=== PATIENT | female | born 1955 | race Caucasian/White ===

== ENCOUNTER 2023-03-26 13:10 | Inpatient (IN) | payer OTHER ==
[2023-03-26] MEDS ORDERED: LACTATED RINGERS SOLUTION 1000 ML INFUS.BAG IV ONE ×2 (14:00→14:30)
[2023-03-26] MEDS ORDERED: METOCLOPRAMIDE HCL INJECTION 10 MG/2 ML VIAL IVPUSH ONE (14:00)
[2023-03-26] MEDS ORDERED: ACETAMINOPHEN 500 MG TABLET (FP) PO ONE (14:03)
[2023-03-26] MEDS ORDERED: METOCLOPRAMIDE HCL INJECTION 10 MG/2 ML VIAL ONE (14:12)
[2023-03-26] MEDS ORDERED: ACETAMINOPHEN INJECTION 100 ML IVPB ONE (14:12)
[2023-03-26 14:22] LABS: VENOUS BASE EXCESS -11.7 mmol/L (-2-2); VENOUS O2 SATURATION 39.7 % (70-80); VENOUS PCO2 40.2 mmHg (38-52); VENOUS PH 7.207 (7.310-7.410)
[2023-03-26] MEDS ORDERED: ACETAMINOPHEN 500 MG TABLET (FP) ONE (14:23)
[2023-03-26 14:37] LABS: BASO % 0.9 % (0-2.0); EOS % 0.1 % (0-4.5); HEMATOCRIT 45.9 % (32.4-45.2); HEMOGLOBIN 15.6 GM/dL (10.7-15.3); LYMPH % 19.5 % (8-40); MCHC 33.9 g/dl (32.0-36.0); MEAN CELL VOLUME 85.5 fl (80-96); MEAN PLT VOLUME 10.1 fl (7.5-11.1); MONO % 5.5 % (3.8-10.2); PLATELET COUNT 305 10^3/uL (134-434); RBC 5.36 M/mm3 (3.60-5.2); RDW 13.1 % (11.6-15.6); WHITE BLOOD COUNT 7.1 K/mm3 (4.0-10.0)
[2023-03-26 15:06] LABS: CHLORIDE 96 mmol/L (98-107); POTASSIUM 4.6 mmol/L (3.5-5.1); SODIUM 129 mmol/L (136-145)
[2023-03-26 15:07] LABS: CALCIUM 9.8 mg/dL (8.5-10.1)
[2023-03-26 15:08] LABS: ALBUMIN 3.7 g/dl (3.4-5.0); ANION GAP 18 mmol/L (4-13); BLOOD UREA NITROGEN 24.6 mg/dL (7-18); CO2 16 mmol/L (21-32); MAGNESIUM 1.9 mg/dL (1.8-2.4)
[2023-03-26 15:11] LABS: CREATININE 1.4 mg/dL (0.55-1.3); PHOSPHOROUS 3.2 mg/dL (2.5-4.9); SGOT/AST 12 U/L (15-37); SGPT/ALT 15 U/L (13-61)
[2023-03-26 15:12] LABS: BILIRUBIN,TOTAL 0.7 mg/dL (0.2-1); TOT PROT 7.1 g/dl (6.4-8.2)
[2023-03-26 15:13] LABS: ALK PHOS 118 U/L (45-117)
[2023-03-26] MEDS ORDERED: SODIUM CHLORIDE 0.9%/KCL 20 MEQ/1,000 ML INFUS.BAG IV SCH (15:15)
[2023-03-26] MEDS ORDERED: INSULIN DRIP - PLEASE ORDER UNDER SETS NR ONE (15:16)
[2023-03-26 15:25] LABS: GLUCOSE,RANDOM 611 mg/dL (74-106)
[2023-03-26] MEDS ORDERED: INSULIN REGULAR HUMAN 100 UNITS/ML *VIAL* (FOR IVP) IVPUSH ONE (15:32)
[2023-03-26] MEDS ORDERED: INSULIN REGULAR HUMAN 100 UNITS/ML *VIAL IVPUSH ONE (15:35)
[2023-03-26] MEDS ORDERED: INSULIN REGULAR 100 UNITS in SODIUM CHLORIDE 99 ML IVPB SCH (15:45)
[2023-03-26 17:11] LABS: PH,URINE 5.5 (5.0-8.0); URINE APPEARANCE CLEAR; URINE BILIRUBIN NEGATIVE (NEGATIVE); URINE COLOR YELLOW; URINE GLUCOSE (UA) 3+ (NEGATIVE); URINE KETONE 4+ (NEGATIVE); URINE LEUK ESTERASE NEGATIVE (NEGATIVE); URINE NITRITE NEGATIVE (NEGATIVE); URINE PROTEIN NEGATIVE (NEGATIVE); URINE UROBILINOGEN 0.2 mg/dL (0.2-1.0)
[2023-03-26] MEDS ORDERED: ALBUTEROL SO4 HFA INHALER IH PRN (18:24)
[2023-03-26 19:29] LABS: BLOOD UREA NITROGEN 19.9 mg/dL (7-18); CALCIUM 8.9 mg/dL (8.5-10.1); CREATININE 1.1 mg/dL (0.55-1.3); POTASSIUM 5.2 mmol/L (3.5-5.1)
[2023-03-26] MEDS ORDERED: DEXTROSE 5%-NORMAL SALINE 1,000 ML IV SCH (21:45)
[2023-03-26] MEDS ORDERED: PATIENT'S OWN MEDICATION (NON-FORMULARY) (Ruxolitinib Phosphate [Opzelura] 60 GM Cream..G. TP SCH (22:00)
[2023-03-26] MEDS: MUPIROCIN 2% TOPICAL OINTMENT FOR DECOLONIZATION NS SCH (23:09)
[2023-03-26] MEDS: CHLORHEXIDINE GLUCONATE 4% CLEANSER FOR DECOLONIZATION TP SCH (23:09)
[2023-03-27] MEDS ORDERED: LEVOTHYROXINE 112 MCG, LEVOTHYROXINE 25 MCG PO SCH (07:00)
[2023-03-27 07:38] LABS: HEMATOCRIT 36.7 % (32.4-45.2); HEMOGLOBIN 13.1 GM/dL (10.7-15.3); MCH 29.9 pg (25.7-33.7); MCHC 35.8 g/dl (32.0-36.0); MEAN CELL VOLUME 83.4 fl (80-96); MEAN PLT VOLUME 9.8 fl (7.5-11.1); PLATELET COUNT 252 10^3/uL (134-434); RDW 12.9 % (11.6-15.6); WHITE BLOOD COUNT 6.2 K/mm3 (4.0-10.0)
[2023-03-27 09:02] LABS: CHLORIDE 110 mmol/L (98-107); POTASSIUM 3.2 mmol/L (3.5-5.1); SODIUM 140 mmol/L (136-145)
[2023-03-27 09:04] LABS: CALCIUM 8.8 mg/dL (8.5-10.1)
[2023-03-27 09:05] LABS: ANION GAP 3 mmol/L (4-13); BLOOD UREA NITROGEN 14.3 mg/dL (7-18); CO2 27 mmol/L (21-32); GLUCOSE,RANDOM 84 mg/dL (74-106)
[2023-03-27 09:06] LABS: MAGNESIUM 1.6 mg/dL (1.8-2.4)
[2023-03-27 09:07] LABS: CREATININE 0.7 mg/dL (0.55-1.3)
[2023-03-27 09:08] LABS: SGOT/AST 13 U/L (15-37); SGPT/ALT 12 U/L (13-61)
[2023-03-27 09:09] LABS: BILIRUBIN,TOTAL 0.4 mg/dL (0.2-1); TOT PROT 5.5 g/dl (6.4-8.2)
[2023-03-27] MEDS ORDERED: MAGNESIUM 2GM/50ML STERILE WATER IVPB IVPB ONE (09:13)
[2023-03-27 09:23] LABS: ALBUMIN 2.9 g/dl (3.4-5.0); ALK PHOS 83 U/L (45-117); PHOSPHOROUS 0.9 mg/dL (2.5-4.9)
[2023-03-27] MEDS ORDERED: INSULIN (LEVEMIR) 100 UNITS/ML UNITS SQ SCH ×2 (09:30→10:00)
[2023-03-27] MEDS: MUPIROCIN 2% TOPICAL OINTMENT FOR DECOLONIZATION NS SCH ×2 (09:39→21:35)
[2023-03-27] MEDS: POTASSIUM CHLORIDE TABS 20 MEQ TABLET.ER (FP) PO SCH ×2 (09:39→09:40)
[2023-03-27] MEDS: NAPH,MB-DB/K PH,MBDB POWDER PACKET PO SCH ×3 (09:40→16:16)
[2023-03-27] MEDS ORDERED: ACETAMINOPHEN 325 MG TABLET (FP) ONE (09:54)
[2023-03-27] MEDS ORDERED: ENOXAPARIN NA (PORCINE) 40 MG/0.4 ML DISP.SYRIN SQ SCH (10:00)
[2023-03-27] MEDS ORDERED: PATIENT'S OWN MEDICATION (NON-FORMULARY) (Levothyroxine Sodium [Synthroid] 137 MCG Tablet) PO SCH (10:00)
[2023-03-27] MEDS: INSULIN SLIDING SCALE (NOVOLOG) 1 VIAL SQ SCH ×3 (11:55→21:58)
[2023-03-27] MEDS: INSULIN (NOVOLOG) ASPART 100 UNITS/ML 10ML VIAL SQ SCH ×2 (11:56→16:52)
[2023-03-27] MEDS ORDERED: INSULIN (NOVOLOG) ASPART 100 UNITS/ML 10ML VIAL SQ SCH (12:00)
[2023-03-27 15:55] LABS: POTASSIUM 3.6 mmol/L (3.5-5.1)
[2023-03-27 16:01] LABS: BLOOD UREA NITROGEN 14.1 mg/dL (7-18); CALCIUM 8.8 mg/dL (8.5-10.1)
[2023-03-27 16:05] LABS: CREATININE 0.7 mg/dL (0.55-1.3); PHOSPHOROUS 1.2 mg/dL (2.5-4.9)
[2023-03-27] MEDS ORDERED: SODIUM CHLORIDE 500 ML IV STA (16:59)
[2023-03-27] MEDS ORDERED: KCL 10 MEQ IVPB 10 MEQ/100 ML INFUS.BAG IVPB SCH (17:15)
[2023-03-27] MEDS ORDERED: SODIUM CHLORIDE 1,000 ML IV SCH (18:00)
[2023-03-27] MEDS ORDERED: SODIUM PHOSPHATE - 20 MM in SODIUM CHLORIDE 250 ML IVPB ONE (18:00)
[2023-03-27] MEDS: CHLORHEXIDINE GLUCONATE 4% CLEANSER FOR DECOLONIZATION TP SCH (21:36)
[2023-03-27] MEDS: INSULIN (LEVEMIR) 100 UNITS/ML UNITS SQ SCH (21:59)
[2023-03-28] MEDS: LEVOTHYROXINE NA 100 MCG TABLET (FP) PO SCH (06:22)
[2023-03-28] MEDS: INSULIN SLIDING SCALE (NOVOLOG) 1 VIAL SQ SCH ×4 (06:51→22:55)
[2023-03-28] MEDS: INSULIN (LEVEMIR) 100 UNITS/ML UNITS SQ SCH (06:51)
[2023-03-28] MEDS ORDERED: ENOXAPARIN NA (PORCINE) 30 MG/0.3 ML DISP.SYRIN SQ SCH (07:30)
[2023-03-28 07:39] LABS: POTASSIUM 3.5 mmol/L (3.5-5.1)
[2023-03-28 07:42] LABS: BLOOD UREA NITROGEN 9.7 mg/dL (7-18); CALCIUM 8.6 mg/dL (8.5-10.1); MAGNESIUM 1.9 mg/dL (1.8-2.4)
[2023-03-28 07:46] LABS: CREATININE 0.6 mg/dL (0.55-1.3); PHOSPHOROUS 3.3 mg/dL (2.5-4.9)
[2023-03-28] MEDS: MUPIROCIN 2% TOPICAL OINTMENT FOR DECOLONIZATION NS SCH ×2 (09:57→22:48)
[2023-03-28 12:59] VITALS: BMI 25.7
[2023-03-28] MEDS: CHLORHEXIDINE GLUCONATE 4% CLEANSER FOR DECOLONIZATION TP SCH (22:48)
[2023-03-28] MEDS: ENOXAPARIN NA (PORCINE) 60 MG/0.6 ML DISP.SYRIN SQ SCH (22:49)
[2023-03-28] MEDS ORDERED: INSULIN (NOVOLOG) ASPART 100 UNITS/ML 10ML VIAL ONE (22:59)
[2023-03-29] MEDS ORDERED: INSULIN (NOVOLOG) ASPART 100 UNITS/ML 10ML VIAL ONE (05:35)
[2023-03-29] MEDS: INSULIN SLIDING SCALE (NOVOLOG) 1 VIAL SQ SCH ×2 (06:02→12:22)
[2023-03-29] MEDS: LEVOTHYROXINE NA 100 MCG TABLET (FP) PO SCH (06:03)
[2023-03-29 07:48] LABS: POTASSIUM 3.4 mmol/L (3.5-5.1)
[2023-03-29 07:55] LABS: BLOOD UREA NITROGEN 8.8 mg/dL (7-18)
[2023-03-29 07:58] LABS: CREATININE 0.6 mg/dL (0.55-1.3)
[2023-03-29] MEDS: ENOXAPARIN NA (PORCINE) 60 MG/0.6 ML DISP.SYRIN SQ SCH (10:01)
[2023-03-29] MEDS: MUPIROCIN 2% TOPICAL OINTMENT FOR DECOLONIZATION NS SCH (10:01)
[2023-03-29 15:37] VITALS: BP 110/71; PULSE 86; RESP 18; TEMP 98.6
== END 2023-03-29 15:45 | disposition home or self-care (01) | DRG 637 ==
LOC: JER 13:10 → JERBED 15:17 → JICU 17:21
PROVIDERS: ADMIT Internal Medicine Pulmonary Disease; ATTEND Internal Medicine
DX: E11.10 Type 2 diabetes mellitus with ketoacidosis without coma (principal); U07.1 COVID-19; N17.9 Acute kidney failure, unspecified; E03.9 Hypothyroidism, unspecified; J45.20 Mild intermittent asthma, uncomplicated; L80 Vitiligo; E86.1 Hypovolemia; E86.0 Dehydration
CPT/HCPCS: 0241U-QW; 36415; 71045-TC-FY; 71275-TC; 80048; 80053; 81003; 82010; 82728; 82803; 82962; 83036; 83735; 84100; 84439; 84443; 84479; 84481; 84484; 85025; 85027; 85379; 86140; 87086; 93005; 93010; 99291; Q9967

== ENCOUNTER 2023-05-11 13:43 | Inpatient (IN) | payer OTHER ==
[2023-05-11 16:35] LABS: BASO % 0.9 % (0-2.0); HEMATOCRIT 48.6 % (32.4-45.2); HEMOGLOBIN 16.2 GM/dL (10.7-15.3); LYMPH % 23.4 % (8-40); MCH 29.1 pg (25.7-33.7); MCHC 33.4 g/dl (32.0-36.0); MEAN CELL VOLUME 87.2 fl (80-96); MEAN PLT VOLUME 11.2 fl (7.5-11.1); MONO % 5.2 % (3.8-10.2); NEUT % 70.5 % (42.8-82.8); PLATELET COUNT 389 10^3/uL (134-434); RBC 5.57 M/mm3 (3.60-5.2); RDW 13.7 % (11.6-15.6); WHITE BLOOD COUNT 11.2 K/mm3 (4.0-10.0)
[2023-05-11 16:44] LABS: INR 0.94 (0.83-1.09); PROTHROMBIN TIME (PATIENT) 10.9 SEC (9.7-13.0)
[2023-05-11 16:47] LABS: ACTIVATED PTT 29.7 SECONDS (25.2-36.5)
[2023-05-11 16:55] LABS: CHLORIDE 101 mmol/L (98-107); SODIUM 133 mmol/L (136-145)
[2023-05-11 16:58] LABS: CALCIUM 10.2 mg/dL (8.5-10.1); GLUCOSE,RANDOM 390 mg/dL (74-106)
[2023-05-11 16:59] LABS: ALBUMIN 4.4 g/dl (3.4-5.0); BLOOD UREA NITROGEN 14.6 mg/dL (7-18); CO2 14 mmol/L (21-32)
[2023-05-11] MEDS ORDERED: SODIUM CHLORIDE 1,000 ML IV STA (17:01)
[2023-05-11 17:02] LABS: CREATININE 1.1 mg/dL (0.55-1.3); SGOT/AST 53 U/L (15-37)
[2023-05-11 17:03] LABS: BILIRUBIN,TOTAL 0.6 mg/dL (0.2-1); TOT PROT 8.9 g/dl (6.4-8.2)
[2023-05-11 17:04] LABS: ALK PHOS 139 U/L (45-117)
[2023-05-11 17:13] LABS: ANION GAP 18 mmol/L (4-13); POTASSIUM 6.9 mmol/L (3.5-5.1); SGPT/ALT 22 U/L (13-61)
[2023-05-11 17:55] LABS: EPI CELLS 6 /uL (0-25.1); HYALINE CASTS 1 /uL (0-3.1); URINE APPEARANCE CLEAR; URINE BACTERIA 5 /uL (0-1359); URINE BILIRUBIN NEGATIVE (NEGATIVE); URINE COLOR YELLOW; URINE GLUCOSE (UA) 3+ (NEGATIVE); URINE KETONE 4+ (NEGATIVE); URINE LEUK ESTERASE NEGATIVE (NEGATIVE); URINE NITRITE NEGATIVE (NEGATIVE); URINE PROTEIN 1+ (NEGATIVE); URINE RBC 8 /uL (0-23.9); URINE UROBILINOGEN 0.2 mg/dL (0.2-1.0); URINE WBC 9 /uL (0-25.8)
[2023-05-11] MEDS ORDERED: SODIUM CHLORIDE 0.9% 500 ML INFUS.BAG IV ONE (18:09)
[2023-05-11 18:10] LABS: POTASSIUM 4.5 mmol/L (3.5-5.1)
[2023-05-11 18:12] LABS: CALCIUM 9.3 mg/dL (8.5-10.1)
[2023-05-11 18:15] LABS: CREATININE 0.9 mg/dL (0.55-1.3)
[2023-05-11 18:48] LABS: VENOUS BASE EXCESS -17.1 mmol/L (-2-2); VENOUS O2 SATURATION 69.6 % (70-80); VENOUS PCO2 33.2 mmHg (38-52)
[2023-05-11 18:50] LABS: VENOUS PH 7.134 (7.310-7.410)
[2023-05-11] MEDS ORDERED: INSULIN REGULAR HUMAN 100 UNITS/ML *VIAL* (FOR IVP) IVPUSH ONE (18:51)
[2023-05-11] MEDS ORDERED: INSULIN REGULAR 100 UNITS in SODIUM CHLORIDE 99 ML IVPB SCH (19:00)
[2023-05-11] MEDS ORDERED: SODIUM CHLORIDE 0.9%/KCL 20 MEQ/1,000 ML INFUS.BAG IV SCH (19:00)
[2023-05-11] MEDS ORDERED: INSULIN SLIDING SCALE (NOVOLOG) 1 VIAL SQ SCH (21:15)
[2023-05-11] MEDS ORDERED: POTASSIUM CHLORIDE 10 MEQ in SODIUM CHLORIDE 0.45% 1,000 ML IVPB SCH (21:15)
[2023-05-11 21:52] VITALS: BMI 25.9
[2023-05-11] MEDS ORDERED: INSULIN (LEVEMIR) 100 UNITS/ML UNITS SQ SCH (22:00)
[2023-05-11] MEDS: D5-NS + 40 MEQ KCL - 40 MEQ/1,000 ML INFUS.BAG IV SCH (22:00)
[2023-05-11 22:43] LABS: POTASSIUM 3.5 mmol/L (3.5-5.1)
[2023-05-11 22:49] LABS: CREATININE 0.7 mg/dL (0.55-1.3)
[2023-05-11 23:13] LABS: BLOOD UREA NITROGEN 11.7 mg/dL (7-18); CALCIUM 8.8 mg/dL (8.5-10.1)
[2023-05-11] MEDS: INSULIN (LEVEMIR) 100 UNITS/ML UNITS SQ SCH (23:33)
[2023-05-12] MEDS: LEVOTHYROXINE NA 125 MCG TABLET (FP) PO SCH (06:44)
[2023-05-12] MEDS ORDERED: INSULIN SLIDING SCALE (NOVOLOG) 1 VIAL SQ SCH (07:00)
[2023-05-12 08:30] LABS: BASO % 1.7 % (0-2.0); EOS % 0.4 % (0-4.5); HEMOGLOBIN 13.6 GM/dL (10.7-15.3); LYMPH % 18.6 % (8-40); MCH 29.5 pg (25.7-33.7); MEAN CELL VOLUME 86.7 fl (80-96); MONO % 7.7 % (3.8-10.2); NEUT % 71.6 % (42.8-82.8); PLATELET COUNT 274 10^3/uL (134-434); RBC 4.61 M/mm3 (3.60-5.2); RDW 13.3 % (11.6-15.6)
[2023-05-12 09:45] LABS: MAGNESIUM 1.5 mg/dL (1.8-2.4)
[2023-05-12 09:47] LABS: BLOOD UREA NITROGEN 9.4 mg/dL (7-18)
[2023-05-12] MEDS ORDERED: MAGNESIUM SULF 50% (8.12 MEQ/2 ML-1 GM VIAL) IVPB ONE ×3 (09:47→18:02)
[2023-05-12 09:49] LABS: BILIRUBIN,DIRECT 0.1 mg/dL (0.0-0.2); CREATININE 0.8 mg/dL (0.55-1.3)
[2023-05-12 09:50] LABS: PHOSPHOROUS 1.8 mg/dL (2.5-4.9)
[2023-05-12 09:51] LABS: BILIRUBIN,TOTAL 0.5 mg/dL (0.2-1)
[2023-05-12 09:54] LABS: ALBUMIN 3.2 g/dl (3.4-5.0)
[2023-05-12] MEDS ORDERED: INSULIN (LEVEMIR) 100 UNITS/ML UNITS SQ SCH ×3 (10:09→22:00)
[2023-05-12] MEDS ORDERED: LACTATED RINGERS SOLUTION 1,000 ML/1,000 ML INFUS.BAG IV STA (10:15)
[2023-05-12] MEDS: ENOXAPARIN NA (PORCINE) 40 MG/0.4 ML DISP.SYRIN SQ SCH (10:21)
[2023-05-12] MEDS: D5-NS + 40 MEQ KCL - 40 MEQ/1,000 ML INFUS.BAG IV SCH (10:36)
[2023-05-12] MEDS ORDERED: INSULIN (LEVEMIR) 100 UNITS/ML UNITS SQ ONE (10:45)
[2023-05-12] MEDS ORDERED: POTASSIUM PHOSPHATE 30 MM in SODIUM CHLORIDE 250 ML IVPB ONE (11:00)
[2023-05-12] MEDS: LACTATED RINGERS SOLUTION 1,000 ML/1,000 ML INFUS.BAG IV SCH (11:10)
[2023-05-12] MEDS: INSULIN (LEVEMIR) 100 UNITS/ML UNITS SQ SCH (11:11)
[2023-05-12] MEDS: INSULIN SLIDING SCALE (NOVOLOG) 1 VIAL SQ SCH ×3 (11:38→21:30)
[2023-05-13] MEDS ORDERED: DEXAMETHASONE SOD PHOSPHATE 10 MG/1 ML VIAL ONE (02:49)
[2023-05-13] MEDS ORDERED: DEXTROSE 50%-WATER 25 GM/50 ML DISP.SYRIN ONE (02:49)
[2023-05-13] MEDS ORDERED: DEXTROSE 50%-WATER 25 GM/50 ML DISP.SYRIN IVPUSH ONE (03:19)
[2023-05-13] MEDS: LACTATED RINGERS SOLUTION 1,000 ML/1,000 ML INFUS.BAG IV SCH (03:27)
[2023-05-13] MEDS ORDERED: D5-1/2NS+20 MEQ KCL - 20 MEQ/1,000 ML INFUS.BAG IV SCH (06:00)
[2023-05-13] MEDS: INSULIN SLIDING SCALE (NOVOLOG) 1 VIAL SQ SCH ×5 (06:10→21:55)
[2023-05-13] MEDS: LEVOTHYROXINE NA 125 MCG TABLET (FP) PO SCH (06:11)
[2023-05-13] MEDS ORDERED: INSULIN (LEVEMIR) 100 UNITS/ML UNITS SQ SCH ×2 (07:00→22:00)
[2023-05-13 07:18] LABS: BASO % 1.1 % (0-2.0); EOS % 0.4 % (0-4.5); HEMATOCRIT 37.8 % (32.4-45.2); LYMPH % 25.1 % (8-40); MCH 29.1 pg (25.7-33.7); MCHC 34.4 g/dl (32.0-36.0); MEAN CELL VOLUME 84.6 fl (80-96); MEAN PLT VOLUME 10.8 fl (7.5-11.1); MONO % 9.8 % (3.8-10.2); NEUT % 63.6 % (42.8-82.8); PLATELET COUNT 247 10^3/uL (134-434); RBC 4.47 M/mm3 (3.60-5.2); RDW 13.6 % (11.6-15.6); WHITE BLOOD COUNT 6.5 K/mm3 (4.0-10.0)
[2023-05-13 07:21] LABS: BLOOD UREA NITROGEN 5.2 mg/dL (7-18); MAGNESIUM 1.8 mg/dL (1.8-2.4)
[2023-05-13 07:23] LABS: CHOLESTEROL 156 mg/dL (50-200)
[2023-05-13 07:24] LABS: CREATININE 0.3 mg/dL (0.55-1.3); PHOSPHOROUS 2.5 mg/dL (2.5-4.9)
[2023-05-13 07:25] LABS: LDL CHOLESTEROL (ONLY SJRH) 105 mg/dL (5-100)
[2023-05-13 07:26] LABS: HDL CHOLESTEROL 41 mg/dL (40-60)
[2023-05-13] MEDS: KCL 10 MEQ IVPB 10 MEQ/100 ML INFUS.BAG IVPB SCH ×3 (07:57→12:01)
[2023-05-13] MEDS: D5-1/2NS+20 MEQ KCL - 20 MEQ/1,000 ML INFUS.BAG IV SCH ×4 (08:05→22:10)
[2023-05-13] MEDS: POTASSIUM CHLORIDE TABS 20 MEQ TABLET.ER (FP) PO SCH ×2 (09:03→21:51)
[2023-05-13] MEDS: ENOXAPARIN NA (PORCINE) 40 MG/0.4 ML DISP.SYRIN SQ SCH (09:04)
[2023-05-13] MEDS ORDERED: REGADENOSON 0.4 MG/5 ML PRE-FILLED SYRINGE IVPUSH ONE ×2 (10:53→11:15)
[2023-05-13] MEDS ORDERED: INSULIN (LEVEMIR) 100 UNITS/ML UNITS SQ ONE (11:24)
[2023-05-13] MEDS ORDERED: ATORVASTATIN CA 20 MG TABLET (FP) PO SCH (22:00)
[2023-05-14] MEDS: INSULIN SLIDING SCALE (NOVOLOG) 1 VIAL SQ SCH ×3 (00:49→08:07)
[2023-05-14] MEDS: LEVOTHYROXINE NA 125 MCG TABLET (FP) PO SCH (06:30)
[2023-05-14] MEDS: D5-1/2NS+20 MEQ KCL - 20 MEQ/1,000 ML INFUS.BAG IV SCH (06:37)
[2023-05-14] MEDS ORDERED: INSULIN (LEVEMIR) 100 UNITS/ML UNITS SQ SCH (07:00)
[2023-05-14] MEDS ORDERED: LEVOTHYROXINE NA 125 MCG TABLET (FP) PO SCH (07:45)
[2023-05-14] MEDS: POTASSIUM CHLORIDE TABS 20 MEQ TABLET.ER (FP) PO SCH (09:59)
[2023-05-14] MEDS ORDERED: ENOXAPARIN NA (PORCINE) 40 MG/0.4 ML DISP.SYRIN SQ SCH (10:00)
[2023-05-14 10:38] VITALS: BP 116/48; PULSE 81; RESP 18; TEMP 98.3
== END 2023-05-14 11:46 | disposition home or self-care (01) | DRG 638 ==
LOC: JER 13:43 → JERBED 20:01 → JICU 21:37 → J4W 05-12 22:59
PROVIDERS: ADMIT Internal Medicine Pulmonary Disease; ATTEND Internal Medicine
DX: E11.10 Type 2 diabetes mellitus with ketoacidosis without coma (principal); E87.3 Alkalosis; E03.9 Hypothyroidism, unspecified; R07.89 Other chest pain
CPT/HCPCS: 0241U-QW; 36415; 71046-TC-FY; 78452-TC; 80048; 80053; 80061; 80076; 81003; 82010; 82550; 82803; 82962; 83735; 84100; 84443; 84484; 85025; 85610; 85730; 87086; 93005; 93010; 93017; 93306-TC; 97116-GP; 97161-GP; 99285-25; A9502; J1100; J2785

== ENCOUNTER 2024-01-26 15:07 | Inpatient (IN) | payer OTHER ==
[2024-01-26] MEDS ORDERED: ONDANSETRON 4 MG/2 ML VIAL ONE (16:24)
[2024-01-26] MEDS ORDERED: ACETAMINOPHEN INJECTION 100 ML ONE (16:24)
[2024-01-26] MEDS: ACETAMINOPHEN 1000 MG/100 ML BAG IVPB ONE (16:35)
[2024-01-26] MEDS: SODIUM CHLORIDE 0.9% 500 ML INFUS.BAG IV ONE (16:35)
[2024-01-26] MEDS: ONDANSETRON *ODT* 4 MG TABLET SL ONE (16:35)
[2024-01-26 16:46] LABS: VENOUS BASE EXCESS -17.9 mmol/L (-2-2); VENOUS O2 SATURATION 56.7 % (70-80); VENOUS PCO2 29.1 mmHg (38-52)
[2024-01-26 16:47] LABS: BASO % 1.5 % (0-2.0); EOS % 0.1 % (0-4.5); HEMATOCRIT 50.6 % (32.4-45.2); HEMOGLOBIN 16.8 GM/dL (10.7-15.3); LYMPH % 16.9 % (8-40); MCH 28.7 pg (25.7-33.7); MCHC 33.1 g/dl (32.0-36.0); MEAN CELL VOLUME 86.5 fl (80-96); MEAN PLT VOLUME 10.6 fl (7.5-11.1); MONO % 3.6 % (3.8-10.2); NEUT % 77.9 % (42.8-82.8); PLATELET COUNT 366 10^3/uL (134-434); RBC 5.85 M/mm3 (3.60-5.2); RDW 13.9 % (11.6-15.6); WHITE BLOOD COUNT 10.2 K/mm3 (4.0-10.0)
[2024-01-26 16:49] LABS: VENOUS PH 7.139 (7.310-7.410)
[2024-01-26 16:54] LABS: INR 0.89 (0.83-1.09); PROTHROMBIN TIME (PATIENT) 10.1 SEC (9.7-13.0)
[2024-01-26 16:56] LABS: ACTIVATED PTT 31.4 SECONDS (25.2-36.5)
[2024-01-26 17:05] LABS: CHLORIDE 98 mmol/L (98-107); POTASSIUM 4.6 mmol/L (3.5-5.1); SODIUM 133 mmol/L (136-145)
[2024-01-26 17:07] LABS: CALCIUM 11.4 mg/dL (8.5-10.1)
[2024-01-26 17:08] LABS: ALBUMIN 4.6 g/dl (3.4-5.0); ANION GAP 24 mmol/L (4-13); BLOOD UREA NITROGEN 17.8 mg/dL (7-18); CO2 11 mmol/L (21-32); MAGNESIUM 1.9 mg/dL (1.8-2.4)
[2024-01-26 17:11] LABS: CREATININE 1.3 mg/dL (0.55-1.3); SGOT/AST 11 U/L (15-37); SGPT/ALT 31 U/L (13-61)
[2024-01-26 17:12] LABS: BILIRUBIN,TOTAL 0.8 mg/dL (0.2-1); GLUCOSE,RANDOM 493 mg/dL (74-106); TOT PROT 8.4 g/dl (6.4-8.2)
[2024-01-26 17:14] LABS: ALK PHOS 151 U/L (45-117)
[2024-01-26 18:02] LABS: HIV INTERPRETATION NEGATIVE (NEGATIVE)
[2024-01-26] MEDS ORDERED: INSULIN REGULAR HUMAN 100 UNITS/ML *VIAL ONE (18:21)
[2024-01-26] MEDS: LACTATED RINGERS SOLUTION 1,000 ML IV STA (18:37)
[2024-01-26] MEDS: INSULIN REGULAR HUMAN 100 UNITS/ML *VIAL IVPUSH ONE (18:37)
[2024-01-26] MEDS: POTASSIUM CHLORIDE TABS 20 MEQ TABLET.ER (FP) PO ONE (18:37)
[2024-01-26] MEDS ORDERED: POTASSIUM CHLORIDE TABS 20 MEQ TABLET.ER (FP) PO ONE (18:38)
[2024-01-26] MEDS: INSULIN REGULAR 100 UNITS in SODIUM CHLORIDE 99 ML IVPB SCH ×2 (18:38→21:26)
[2024-01-26 19:21] LABS: EPI CELLS 3 /uL (0-25.1); HYALINE CASTS 1 /uL (0-3.1); PH,URINE 5.5 (5.0-8.0); URINE APPEARANCE CLEAR; URINE BACTERIA 6 /uL (0-1359); URINE BILIRUBIN NEGATIVE (NEGATIVE); URINE COLOR YELLOW; URINE GLUCOSE (UA) 3+ (NEGATIVE); URINE KETONE 4+ (NEGATIVE); URINE LEUK ESTERASE NEGATIVE (NEGATIVE); URINE NITRITE NEGATIVE (NEGATIVE); URINE PROTEIN 1+ (NEGATIVE); URINE RBC 9 /uL (0-23.9); URINE UROBILINOGEN 0.2 mg/dL (0.2-1.0); URINE WBC 4 /uL (0-25.8)
[2024-01-26] MEDS ORDERED: ACETAMINOPHEN 325 MG TABLET (FP) PO PRN (19:46)
[2024-01-26] MEDS ORDERED: ALBUTEROL SO4 2.5/IPRATROPIUM 0.5 INH SOL 3 ML VIAL.NEB. NEB PRN (19:50)
[2024-01-26] MEDS ORDERED: SODIUM CHLORIDE 1,000 ML IV SCH (20:45)
[2024-01-26] MEDS ORDERED: DEXTROSE 50%-WATER - 25 GM/50 ML VIAL IVPUSH PRN (21:10)
[2024-01-26 21:11] LABS: POTASSIUM 4.1 mmol/L (3.5-5.1)
[2024-01-26 21:12] LABS: CALCIUM 10.5 mg/dL (8.5-10.1)
[2024-01-26 21:13] LABS: BLOOD UREA NITROGEN 17.6 mg/dL (7-18)
[2024-01-26 21:16] LABS: CREATININE 1.1 mg/dL (0.55-1.3)
[2024-01-26] MEDS: LACTATED RINGERS SOLUTION 1,000 ML/1,000 ML INFUS.BAG IV SCH (22:00)
[2024-01-26 22:15] LABS: BASO % 0.6 % (0-2.0); HEMOGLOBIN 15.7 GM/dL (10.7-15.3); LYMPH % 7.9 % (8-40); MCH 28.5 pg (25.7-33.7); MCHC 31.4 g/dl (32.0-36.0); MEAN CELL VOLUME 90.8 fl (80-96); MEAN PLT VOLUME 10.2 fl (7.5-11.1); MONO % 4.5 % (3.8-10.2); PLATELET COUNT 242 10^3/uL (134-434); RBC 5.51 M/mm3 (3.60-5.2); RDW 14.4 % (11.6-15.6); WHITE BLOOD COUNT 14.2 K/mm3 (4.0-10.0)
[2024-01-26 22:27] LABS: POTASSIUM 4.2 mmol/L (3.5-5.1)
[2024-01-26 22:30] LABS: CALCIUM 10.8 mg/dL (8.5-10.1)
[2024-01-26 22:31] LABS: BLOOD UREA NITROGEN 17.1 mg/dL (7-18)
[2024-01-26 22:34] LABS: CREATININE 1.1 mg/dL (0.55-1.3)
[2024-01-26] MEDS: CHLORHEXIDINE GLUCONATE 4% CLEANSER FOR DECOLONIZATION TP SCH (23:14)
[2024-01-26] MEDS: MUPIROCIN 2% TOPICAL OINTMENT FOR DECOLONIZATION NS SCH (23:14)
[2024-01-26] MEDS: PANTOPRAZOLE SODIUM 40 MG VIAL IVPUSH SCH (23:14)
[2024-01-26] MEDS: ATORVASTATIN CA 20 MG TABLET (FP) PO SCH (23:14)
[2024-01-26 23:17] LABS: VENOUS BASE EXCESS -16.7 mmol/L (-2-2); VENOUS O2 SATURATION 62.5 % (70-80); VENOUS PCO2 31.5 mmHg (38-52)
[2024-01-26 23:21] LABS: VENOUS PH 7.154 (7.310-7.410)
[2024-01-26] MEDS: LACTATED RINGERS SOLUTION 1000 ML INFUS.BAG IV ONE (23:32)
[2024-01-27 00:30] VITALS: BMI 23.1
[2024-01-27 01:54] LABS: BASO % 0.5 % (0-2.0); HEMATOCRIT 42.5 % (32.4-45.2); HEMOGLOBIN 14.2 GM/dL (10.7-15.3); LYMPH % 19.8 % (8-40); MCH 28.6 pg (25.7-33.7); MCHC 33.3 g/dl (32.0-36.0); MEAN CELL VOLUME 85.7 fl (80-96); MEAN PLT VOLUME 10.2 fl (7.5-11.1); MONO % 8.5 % (3.8-10.2); NEUT % 71.2 % (42.8-82.8); PLATELET COUNT 340 10^3/uL (134-434); RBC 4.96 M/mm3 (3.60-5.2); WHITE BLOOD COUNT 15.2 K/mm3 (4.0-10.0)
[2024-01-27 02:05] LABS: VENOUS BASE EXCESS -12.8 mmol/L (-2-2); VENOUS O2 SATURATION 56.2 % (70-80); VENOUS PCO2 33.8 mmHg (38-52); VENOUS PH 7.225 (7.310-7.410)
[2024-01-27 02:13] LABS: POTASSIUM 4.2 mmol/L (3.5-5.1); POTASSIUM 4.3 mmol/L (3.5-5.1)
[2024-01-27 02:14] LABS: BLOOD UREA NITROGEN 14.2 mg/dL (7-18); CALCIUM 10.3 mg/dL (8.5-10.1)
[2024-01-27 02:16] LABS: CALCIUM 10.2 mg/dL (8.5-10.1)
[2024-01-27 02:17] LABS: BLOOD UREA NITROGEN 14.5 mg/dL (7-18)
[2024-01-27 02:18] LABS: CREATININE 1.1 mg/dL (0.55-1.3)
[2024-01-27 02:20] LABS: CREATININE 1.1 mg/dL (0.55-1.3)
[2024-01-27 02:22] LABS: BILIRUBIN,TOTAL 0.6 mg/dL (0.2-1); TOT PROT 6.8 g/dl (6.4-8.2)
[2024-01-27 02:51] LABS: ALBUMIN 3.7 g/dl (3.4-5.0)
[2024-01-27] MEDS: INSULIN REGULAR HUMAN 100 UNITS/ML *VIAL IVPUSH ONE (03:59)
[2024-01-27] MEDS: DEXTROSE 10%-WATER - 1,000 ML IV SCH (07:00)
[2024-01-27] MEDS: LEVOTHYROXINE NA 125 MCG TABLET (FP) PO SCH (07:05)
[2024-01-27] MEDS: INSULIN (LEVEMIR) 100 UNITS/ML UNITS SQ ONE (07:24)
[2024-01-27 07:56] LABS: VENOUS BASE EXCESS -7.3 mmol/L (-2-2); VENOUS O2 SATURATION 71.7 % (70-80); VENOUS PCO2 37.3 mmHg (38-52); VENOUS PH 7.308 (7.310-7.410)
[2024-01-27 08:05] LABS: BASO % 0.8 % (0-2.0); EOS % 0.2 % (0-4.5); HEMATOCRIT 39.1 % (32.4-45.2); LYMPH % 22.2 % (8-40); MCH 28.5 pg (25.7-33.7); MCHC 33.3 g/dl (32.0-36.0); MEAN CELL VOLUME 85.4 fl (80-96); MEAN PLT VOLUME 10.5 fl (7.5-11.1); MONO % 10.8 % (3.8-10.2); PLATELET COUNT 287 10^3/uL (134-434); RBC 4.58 M/mm3 (3.60-5.2); RDW 13.4 % (11.6-15.6); WHITE BLOOD COUNT 11.2 K/mm3 (4.0-10.0)
[2024-01-27] MEDS: HEPARIN NA (PORCINE) 5,000 UNITS/ML 1ML VIAL SQ SCH ×2 (08:10→15:34)
[2024-01-27 08:12] LABS: CHLORIDE 111 mmol/L (98-107); POTASSIUM 3.5 mmol/L (3.5-5.1); SODIUM 138 mmol/L (136-145)
[2024-01-27 08:14] LABS: ANION GAP 9 mmol/L (4-13); BLOOD UREA NITROGEN 10.1 mg/dL (7-18); CO2 19 mmol/L (21-32); GLUCOSE,RANDOM 140 mg/dL (74-106); MAGNESIUM 1.4 mg/dL (1.8-2.4)
[2024-01-27 08:15] LABS: ALBUMIN 3.2 g/dl (3.4-5.0)
[2024-01-27 08:17] LABS: CREATININE 0.9 mg/dL (0.55-1.3); SGPT/ALT 23 U/L (13-61)
[2024-01-27 08:18] LABS: SGOT/AST 19 U/L (15-37)
[2024-01-27 08:19] LABS: BILIRUBIN,TOTAL 0.6 mg/dL (0.2-1); TOT PROT 5.7 g/dl (6.4-8.2)
[2024-01-27 08:20] LABS: ALK PHOS 94 U/L (45-117)
[2024-01-27 08:55] LABS: PHOSPHOROUS 0.7 mg/dL (2.5-4.9)
[2024-01-27] MEDS: MAGNESIUM 2GM/50ML STERILE WATER IVPB IVPB ONE (10:04)
[2024-01-27] MEDS: D5-1/2NS+10 MEQ KCL - 10 MEQ/1,000 ML INFUS.BAG IV SCH ×2 (10:04→21:02)
[2024-01-27] MEDS: SODIUM PHOSPHATE - 45 MM in DEXTROSE 5%-WATER - 500 ML IVPB ONE (11:20)
[2024-01-27] MEDS: INSULIN ASPART SLIDING SCALE (NOVOLOG) 1 VIAL SQ SCH ×2 (15:34→21:45)
[2024-01-27] MEDS ORDERED: DEXTROSE 50%-WATER - 25 GM/50 ML VIAL IVPUSH PRN (16:51)
[2024-01-27] MEDS ORDERED: ALBUTEROL SO4 2.5/IPRATROPIUM 0.5 INH SOL 3 ML VIAL.NEB. NEB PRN (16:51)
[2024-01-27] MEDS ORDERED: INSULIN (LEVEMIR) 100 UNITS/ML UNITS SQ ONE (17:23)
[2024-01-27 21:16] LABS: MAGNESIUM 1.8 mg/dL (1.8-2.4)
[2024-01-27] MEDS: ATORVASTATIN CA 20 MG TABLET (FP) PO SCH (21:29)
[2024-01-27] MEDS ORDERED: CHLORHEXIDINE GLUCONATE 4% CLEANSER FOR DECOLONIZATION TP SCH (22:00)
[2024-01-27] MEDS ORDERED: MUPIROCIN 2% TOPICAL OINTMENT FOR DECOLONIZATION NS SCH (22:00)
[2024-01-27 22:20] LABS: PHOSPHOROUS > 18.0 mg/dL (2.5-4.9)
[2024-01-28] MEDS: INSULIN (LEVEMIR) 100 UNITS/ML UNITS SQ SCH ×2 (06:20→21:43)
[2024-01-28] MEDS: LEVOTHYROXINE NA 125 MCG TABLET (FP) PO SCH (06:21)
[2024-01-28] MEDS ORDERED: INSULIN (LEVEMIR) 100 UNITS/ML UNITS SQ SCH (09:00)
[2024-01-28 09:43] LABS: BASO % 1.2 % (0-2.0); EOS % 0.5 % (0-4.5); HEMATOCRIT 40.3 % (32.4-45.2); HEMOGLOBIN 13.6 GM/dL (10.7-15.3); LYMPH % 47.8 % (8-40); MCH 28.7 pg (25.7-33.7); MCHC 33.6 g/dl (32.0-36.0); MEAN CELL VOLUME 85.4 fl (80-96); MEAN PLT VOLUME 10.1 fl (7.5-11.1); MONO % 9.5 % (3.8-10.2); PLATELET COUNT 212 10^3/uL (134-434); RBC 4.72 M/mm3 (3.60-5.2); RDW 14.1 % (11.6-15.6); WHITE BLOOD COUNT 5.9 K/mm3 (4.0-10.0)
[2024-01-28 10:00] LABS: POTASSIUM 3.2 mmol/L (3.5-5.1)
[2024-01-28 10:02] LABS: CALCIUM 9.5 mg/dL (8.5-10.1)
[2024-01-28 10:03] LABS: BLOOD UREA NITROGEN 6.2 mg/dL (7-18)
[2024-01-28 10:06] LABS: CREATININE 0.7 mg/dL (0.55-1.3)
[2024-01-28] MEDS: PANTOPRAZOLE SODIUM 40 MG VIAL IVPUSH SCH (10:20)
[2024-01-28] MEDS: KCL 10 MEQ IVPB 10 MEQ/100 ML INFUS.BAG IVPB SCH (12:48)
[2024-01-28] MEDS: ACETAMINOPHEN 325 MG TABLET (FP) PO PRN (14:53)
[2024-01-28 23:52] VITALS: RESP 18
[2024-01-29] MEDS: PANTOPRAZOLE 40 MG TABLET PO SCH (09:29)
[2024-01-29 09:51] LABS: BASO % 1.2 % (0-2.0); EOS % 0.7 % (0-4.5); HEMATOCRIT 38.1 % (32.4-45.2); HEMOGLOBIN 12.9 GM/dL (10.7-15.3); LYMPH % 56.4 % (8-40); MCH 28.6 pg (25.7-33.7); MCHC 33.9 g/dl (32.0-36.0); MEAN CELL VOLUME 84.3 fl (80-96); MEAN PLT VOLUME 10.3 fl (7.5-11.1); MONO % 9.1 % (3.8-10.2); NEUT % 32.6 % (42.8-82.8); PLATELET COUNT 232 10^3/uL (134-434); RBC 4.52 M/mm3 (3.60-5.2); RDW 13.9 % (11.6-15.6); WHITE BLOOD COUNT 5.2 K/mm3 (4.0-10.0)
[2024-01-29 10:04] VITALS: BP 144/79; PULSE 82; TEMP 97.7
[2024-01-29 10:12] LABS: POTASSIUM 3.5 mmol/L (3.5-5.1)
[2024-01-29 10:17] LABS: BLOOD UREA NITROGEN 3.8 mg/dL (7-18)
[2024-01-29 10:19] LABS: CALCIUM 9.6 mg/dL (8.5-10.1)
[2024-01-29 10:20] LABS: CREATININE 0.6 mg/dL (0.55-1.3); PHOSPHOROUS 2.1 mg/dL (2.5-4.9)
[2024-01-29] MEDS: KCL 10 MEQ IVPB 10 MEQ/100 ML INFUS.BAG IVPB SCH (11:23)
== END 2024-01-29 17:26 | disposition home or self-care (01) | DRG 638 ==
LOC: JER 15:07 → JERBED 18:38 → JICU 21:04 → J6W 01-27 16:38
PROVIDERS: ADMIT Internal Medicine Pulmonary Disease; ATTEND Internal Medicine
DX: E11.10 Type 2 diabetes mellitus with ketoacidosis without coma (principal); E87.1 Hypo-osmolality and hyponatremia; E87.3 Alkalosis; E87.4 Mixed disorder of acid-base balance; E83.42 Hypomagnesemia; E83.52 Hypercalcemia; E78.5 Hyperlipidemia, unspecified; E03.9 Hypothyroidism, unspecified; E86.0 Dehydration; E83.39 Other disorders of phosphorus metabolism
CPT/HCPCS: 0241U-QW; 36415; 71045-TC-FY; 80048; 80053; 81003; 82010; 82803; 82962; 83036; 83605; 83735; 84100; 84484; 85025; 85610; 85730; 86803; 87086; 87389; 97116-GP; 97161-GP; 99291; J0131; J1644; Q0162